=== PATIENT | female | born 1950 | race Caucasian/White ===

== ENCOUNTER 2016-09-25 17:54 | Emergency (ER) | payer BC ==
[2016-09-25] MEDS ORDERED: Ibuprofen TAB* 600 MG PO ONE (19:58)
--- NOTE | 2016-09-25 20:52 | RAD ---
Indication: Left wrist injury 3 views of the wrist demonstrates nondisplaced fracture of the distal radius. No displacement or intra-articular extension is noted. IMPRESSION: Likely nondisplaced fracture distal radius.
[2016-09-25 21:25] VITALS: BP 158/77
--- NOTE | 2016-09-25 21:27 | UC ---
Kanchan Loaiza Alfonso, scribed for Julio César Pryor MD on 09/25/16 at 2013 . Hand/Wrist HPI - HPI Summary HPI Summary: This patient is a 66 year old F presenting to [facility] accompanied by with a chief complaint of left hand injury which occurred earlier today. She reports I was at step class and caught my foot on something and landed on my hand on a pretty hard surface. The CC is described as an ache. Pt rates the pain 4/10 in severity. Symptoms aggravated by nothing and alleviated by ice. Patient medications reviewed this visit. - History Of Current Complaint Chief Complaint: UCUpperExtremity Stated Complaint: WRIST INJURY Time Seen by Provider: 09/25/16 19:54 Hx Obtained From: Patient Mechanism Of Injury: Fall Onset/Duration: Sudden Onset, Lasting Hours - earlier today, Still Present Severity Initially: Moderate Severity Currently: Moderate Pain Intensity: 4 Pain Scale Used: 0-10 Numeric Character Of Pain: Aching Aggravating Factor(s): Other - Nothing Alleviating: Ice - Allergies/Home Medications Allergies/Adverse Reactions: Allergies Allergy/AdvReac Type Severity Reaction Status Date / Time No Known Allergies Allergy Verified 08/28/15 15:15 PMH/Surg Hx/FS Hx/Imm Hx - Surgical History Surgical History: Yes Surgery Procedure, Year, and Place: t&a, c-sections X2, curcl[place] - Family History Known Family History: Positive: Other - Cancer - Social History Alcohol Use: Rare Substance Use Type: None Smoking Status (MU): Never Smoked Tobacco Review of Systems Constitutional: Other - Negative fever Musculoskeletal: Other: - Positive left hand injury and pain. All Other Systems Reviewed And Are Negative: Yes Physical Exam Triage Information Reviewed: Yes Appearance: Well-Appearing, No Pain Distress Vital Signs: Initial Vital Signs Temp 99.7 F 09/25/16 18:48 Pulse 95 09/25/16 18:48 Resp 18 09/25/16 18:48 BP 165/72 09/25/16 18:48 Pulse Ox 99 09/25/16 18:48 Vital Signs Reviewed: Yes Eyes: Positive: Other: - EOMI KIM ENT: Positive: Normal ENT inspection Neck: Positive: Supple, Nontender Respiratory: Positive: Chest non-tender, Lungs clear, Normal breath sounds Cardiovascular: Positive: RRR Abdomen Description: Positive: Nontender, Soft Bowel Sounds: Positive: Present Musculoskeletal: Positive: Other: - Tenderness and swelling distal left radius. Good capillary refills and pulses bilaterally. Neurological: Positive: Alert Psychological: Positive: Age Appropriate Behavior Skin Exam: Normal Procedures - Splinting Hand-Made Type: orthoglass - 3 INCH Splint: volar Pre-Proc Neuro Vasc Exam: normal Post-Proc Neuro Vasc Exam: normal Diagnostics - Radiology Wrist X-Ray Radiology Interpretation Completed By: Radiologist - Likely nondisplaced fracture distal radius. Hand/Wrist Course/Dx - Course Course Of Treatment: SPLINTED IN CLINIC. - Differential Dx/Diagnosis Provider Diagnoses: LEFT DISTAL RADIUS NON DISPLACED CLOSED FRACTURE Discharge - Discharge Plan Condition: Stable Disposition: HOME Patient Education Materials: Wrist Fracture in Adults (ED) Referrals: [facility] [Outside] López Abdi MD [Medical Doctor] - Michael Fernández MD [Primary Care Provider] - Additional Instructions: FOLLOW UP WITH ORTHOPEDICS. CALL TOMORROW AT 8AM FOR YOUR APPOINTMENT. GET RECHECKED FOR ANY WORSENING OF YOUR CONDITION OR QUESTIONS OR CONCERNS. The documentation as recorded by the Kanchan singh Alfonso accurately reflects the service I personally performed and the decisions made by me, Julio César Pryor MD.
== END 2016-09-25 21:25 | disposition home or self-care (01) ==
LOC: UCEAST 17:54
DX: S52.502A Unspecified fracture of the lower end of left radius, initial encounter for closed fracture (principal); W01.10XA Fall on same level from slipping, tripping and stumbling with subsequent striking against unspecified object, initial encounter
CPT/HCPCS: 99212; A9270-GY; G0463